=== PATIENT | female | born 1980 | race Caucasian/White ===

== ENCOUNTER 2025-01-29 13:47 | Emergency (ER) | payer OTHER, SELFPAY ==
[2025-01-29 13:47] VITALS: BMI 23.0
[2025-01-29 13:57] VITALS: BP 162/99
[2025-01-29 14:26] LABS: % Basophils 0.7 % (0-2); % Eosinophils 1.4 % (0-6); % Immature Granulocytes 0.2 % (0-0.5); % Lymphocytes 28.1 % (20.5-51.1); % Monocytes 5.2 % (1.7-9.3); % Neutrophils 64.4 % (42.2-75.2); Absolute Eosinophils 0.1 10^3/uL (0-0.7); Absolute Lymphocytes 1.2 10^3/uL (1.2-3.4); Absolute Monocytes 0.2 10^3/uL (0.1-0.6); Absolute Neutrophils 2.8 10^3/uL (1.4-6.5); Hematocrit 38.8 % (37.0-47.0); Mean Corp Hgb Conc. 36.1 g/dL (33.0-37.0); Mean Corpuscular Hgb 33.6 pg (27.0-31.0); Nucleated Red Blood Cells % 0 %; Platelet Count 294 10^3/uL (130-400); Red Blood Cell Count 4.17 10^6/uL (4.20-5.40); Red Cell Dist. Width 11.7 % (11.5-14.5); White Blood Cell Count 4.3 10^3/uL (4.8-10.8)
[2025-01-29 14:28] LABS: HCG, Serum Qualitative Screen Negative
[2025-01-29 14:33] LABS: ALT (SGPT) 14 U/L (0-35); AST (SGOT) 22 U/L (14-36); Albumin 4.1 g/dl (3.5-5.0); Alkaline Phosphatase 52 U/L (38-126); Blood Urea Nitrogen 9 mg/dl (7-17); Calcium 9.4 mg/dl (8.4-10.2); Carbon Dioxide 26 mmol/L (22-30); Chloride 105 mmol/L (98-107); Glucose 88 mg/dl (70-99); Lipase 81 U/L (23-300); Potassium 3.9 mmol/L (3.5-5.1); Sodium 138 mmol/L (135-145); Total Bilirubin 1.6 mg/dl (0.2-1.3); Total Protein 7.1 g/dl (6.3-8.2); eGFR > 60.00
[2025-01-29 14:45] LABS: Troponin I 0.015 ng/ml
--- NOTE | 2025-01-29 15:53 | ED.GENMED ---
History of Present Illness
General
Chief Complaint: Chest Pain
Source: patient
Exam Limitations: none
Time Seen by Provider: 01/29/25 15:48
History of Present Illness
History of Present Illness:
44yoF with a history of hypothyroidism, asthma, IBS, and GERD presenting for evaluation of chest pain. Patient started with left-sided chest discomfort and palpitations last night around 6 PM. She was playing her piano when the symptoms began.
She states her heart was racing for about 4 hours before that resolved. She continues to have a pressure in the left side of her chest as well as nausea. She denies any shortness of breath, syncope, vomiting. Patient has been sick with a sinus
infection for about a week. She was seen at urgent care prior to arrival and was told that her EKG was 'wonky' and was told to go to the ED for evaluation. Patient denies any history of heart disease.
Past History
Past History
ED Past Medical History: Asthma and Other (Fibroids, IBS); Negative HTN, Hypercholesterolemia or NIDDM
ED Past Surgical History: Appendectomy and Cholecystectomy
Social History
Tobacco: Non-smoker
Alcohol: None
Personal:
Living: with family
Employment: Employed
Phy Exam
General Physical Exam
General Presentation: well appearing and no apparent distress
General age: appears stated age
General Skin: warm and dry
General Habitus: normal
General Mental: alert
ENT Exam
ENT Exam: normocephalic
Cardiovascular Exam
Cardiovascular Exam: regular rate/rhythm, no edema and no murmur
Pulmonary Exam
Pulmonary Exam: lungs clear, no respiratory distress, no rales, no crackles and no rhonchi
Neurological Exam
Neurological Exam: alert
[place] Coma Scale
Eye Opening: Spontaneous
Verbal Response: Oriented
Motor Response: Obeys Commands
GCS Total Score: 15
Skin Exam
Skin Exam: normal color and warm/dry
Psychiatric Exam
Psychiatric Exam: normal mood/affect
Scores
Heart Score for Chest Pain Patients
STEMI patient?: No
History: Moderately Suspicious
ECG: Normal
Age: >45 - <65 years
Risk Factors: No Risk Factors
Troponin: </= Normal Limit
Heart Score for Chest Pain Patients: 2
Heart Score Risk: 2.5% MACE over next 6 weeks
Course
Orders/Labs/Results
Orders:
Orders
01/29/25 13:49
EKG [Electrocardiogram (*1)] Urgent
Reason for Study: Chest Pain
01/29/25 13:50
EKG- Treatment ONCE
01/29/25 14:02
Test Result ONCE
01/29/25 14:11
Complete Blood Count/With Diff Urgent
Comprehensive Metabolic Panel Urgent
HCG, Serum Qualitative Screen Urgent
Lipase Urgent
TSH Urgent
Comment: ADD ON
Troponin I Urgent
01/29/25 16:05
Add On- LAB Urgent
Tests Added?: TSH
Electrocardiogram (*1) Urgent
Reason for Study: Chest Pain
EKG- Treatment ONCE
01/29/25 16:24
Troponin I Urgent
Abnormal Lab Results
01/29/25
14:11
WBC 4.3 L 10^3/uL
(4.8-10.8)
RBC 4.17 L 10^6/uL
(4.20-5.40)
MCH 33.6 H pg
(27.0-31.0)
Total Bilirubin 1.6 H mg/dl
(0.2-1.3)
01/29/25 14:11
01/29/25 14:11
Vital Signs
Initial and Last Documented VS:
Initial Vital Signs
Temp Pulse Resp BP Pulse Ox
97.8 F 84 16 162/99 97
01/29/25 13:57 01/29/25 13:57 01/29/25 13:57 01/29/25 13:57 01/29/25 13:57
Last Documented Vital Signs
Temp Pulse Resp BP Pulse Ox
98.3 F 86 16 150/87 99
01/29/25 18:05 01/29/25 18:05 01/29/25 18:05 01/29/25 18:05 01/29/25 18:05
MDM/Problems Addressed
Differential Diagnosis Includes:
44yoF here with chest pain. Started with palpitations 6pm last night. Heart was racing for 4 hours. Continues to have L sided chest pressure. Sent here by urgent care. Of note, she is also sick with a sinus infection. She is mildly hypertensive with
otherwise normal vitals. She is well-appearing in no acute distress. Exam is reassuring. Differential diagnosis includes but not limited to: Musculoskeletal, pneumonia, pleurisy, arrhythmia, ACS
Initial ED plan: Cardiac labs and EKG obtained in triage. EKG shows normal sinus rhythm without ischemic changes and troponin within normal limits. Will check delta troponin/EKG and TSH. Chest x-ray performed at urgent care was reportedly normal
and lung exam is unremarkable.
*EKG
Interpreted by ED Provider?: Yes
EKG Intrepretation Date: 01/29/25
Heart Rate: 75
Rate: normal
Rhythm: sinus
[place]: normal axis
Interval: normal interval
QRS Pattern: normal QRS
Ischemia: no ischemia
*Critical Care Note
Total Time (30-74mins, 75-104mins- exclusive of procedures): Not Applicable
Update Note
Update Note:
TSH normal. EKG and troponin unchanged. No indication for hospitalization at this time. She was advised to follow-up with PCP. Strict ED return precautions discussed. Patient in agreement with plan and was discharged in stable condition.
ED Attending Note
-
Portions of this chart may have been created with voice recognition software.� Occasional wrong word or��sound alike� substitutions may have occurred due to the inherent limitations of voice recognition software.
Discharge Plan
Departure
Patient Disposition: Home (Routine Discharge)
Date of Disposition: 01/29/25
Time of Disposition: 17:38
Patient with high blood pressure during this ER visit?: Yes
Discharge Problem:
Chest pain, Sinusitis, Nausea
Instructions: Chest Pain PCP Follow Up
Prescriptions:
New
ondansetron 4 mg tablet,disintegrating
4 mg PO Q6H PRN (Reason: nausea and vomiting) Qty: 20 0RF
azithromycin [Zithromax] 250 mg tablet
250 mg PO DAILY Qty: 6 0RF
Rx Instructions:
Take 500mg on day 1 followed by 250mg daily x 4 days
No Action
montelukast 10 MG tablet
10 mg PO DAILY
cetirizine 10 MG tablet
10 tab PO DAILY
albuterol sulfate 1 PUFF HFA aerosol inhaler
2 puff continuous nebulization PRN
doxycycline hyclate 100 MG capsule
100 mg PO Q12 Qty: 19 0RF
albuterol sulfate 1 PUFF HFA aerosol inhaler
1 puff inhalation R Q4HPRN PRN (Reason: short of breath) Qty: 1 0RF
prednisone 50 MG tablet
50 mg PO DAILY Qty: 5 0RF
Referrals:
Josue De Dios DO [Family Provider] -
Activity Restrictions/Additional Instructions:
Please call tomorrow to schedule a follow-up with your family doctor. Return to the ER with any new or worsening symptoms.
Interventions
Interventions:
*Risk Screen - Suicide Last Done: 01/29/25 16:33
*General Assessment Last Done: 01/29/25 16:33
*Neglect/Abuse Screening Last Done: 01/29/25 16:33
*ED- Fall Risk Assessment Last Done: 01/29/25 16:33
*ED COVID-19 Vaccine History Last Done: 01/29/25 16:32
*Nursing Disposition Last Done: 01/29/25 18:05
ED- Cardiac Assessment Last Done: 01/29/25 16:35
Discharge Date and Time
Discharge Date/Time: 01/29/25 18:30
Print Language: ALBANIAN
[2025-01-29 16:06] VITALS: BP 144/97
[2025-01-29 16:54] LABS: Troponin I < 0.012 ng/ml
[2025-01-29 17:00] VITALS: BP 152/63
[2025-01-29 17:24] LABS: TSH 0.94 uIU/ml (0.47-4.68)
[2025-01-29 18:00] VITALS: BP 134/84
[2025-01-29 18:05] VITALS: BP 150/87
== END 2025-01-29 18:30 | disposition home or self-care (01) ==
LOC: EMR 13:47
PROVIDERS: Emergency Medicine; Physician Assistant; EMERGENCY PHYSICIAN Student in an Organized Health Care Education/Training Program; FAMILY PHYSICIAN Family Medicine
DX: R07.9 Chest pain, unspecified (principal); J32.9 Chronic sinusitis, unspecified; R11.0 Nausea; E03.9 Hypothyroidism, unspecified; J45.909 Unspecified asthma, uncomplicated; K21.9 Gastro-esophageal reflux disease without esophagitis
CPT/HCPCS: 99284; 80053; 83690; 84443; 84484; 84703; 85025; 93005